=== PATIENT | female | born 1960 | race African-American/Black ===

== ENCOUNTER 2017-08-12 13:44 | Observation (INO) | payer OTHER ==
[2017-08-12 13:55] VITALS: BMI 31.3
--- NOTE | 2017-08-12 14:49 | PDOC ---
History of Present Illness - General History Source: Patient Exam Limitations: No Limitations - History of Present Illness Initial Comments: 08/12/17 15:22 The patient is a 56 year old female, with a significant past medical history of lupus, invasive ductal carcinoma of right breast, who presents to the emergency department with multiple complaints. The patient reports left sided arm pain and muscle weakness beginning approx. 3 days ago. The patient reports her left arm has been feeling numb for approx. 2 years, however, the left arm pain and muscle weakness are new. The patient also reports left sided chest discomfort beginning approx. 3 days ago. The patient describes the left sided chest discomfort as a pressure feeling that is unaffected by movement or activity. The patient also reports left sided abdominal pain that began three days ago and is worse when using the restroom. The patient states that the symptoms have been intermittent for the past 3 days and that she visited the ED at [place] yesterday for evaluation, however, was discharged and instructed from the doctor that her blood work and EKG were normal. She denies recent fevers, chills, headache or dizziness. She denies recent nausea, vomit, diarrhea or constipation. She denies recent dysuria, frequency, urgency or hematuria. She denies shortness of breath. Primary Care Physician: Dr. Christensen <Bello Pang - Last Filed: 08/12/17 18:33> <Chema Hwang - Last Filed: 08/12/17 19:17> - General Chief Complaint: Chest Pain Stated Complaint: CHEST PAIN, LEFT ARM, LEFT LEG NUMBNESS Time Seen by Provider: 08/12/17 13:53 NIH Stroke Scale - Last Known Well Date/Time & Onset Date Last Known Well: 08/09/17 - Initial Evaluation Level of consciousness: Alert Ask patient the month and their age: Answers both correctly Ask patient to open & close eyes; make fist and let go: Obeys both correctly Best gaze (horizontal eye movement): Normal Visual field testing: No visual field loss Facial paresis (Show teeth/raise eyebrows/close eyes tight): Normal symmetrical movement Motor Function: Left Arm: Normal Motor Function: Right Arm: Normal (extends arm 90 (or 45) degrees for 10 seconds without drift Motor Function: Left Leg: Normal (extends leg 30 degrees for 5 seconds without drift) Motor Function: Right Leg: Normal (extends leg 30 degrees for 5 seconds without drift) Limb Ataxia: No ataxia Sensory(Use pinprick test arms,legs,trunk,face/side to side): Normal Best language (Describe picture, name items, read sentences): No Aphasia Dysarthria (read several words): Normal articulation Extinction and Inattention: No abnormality - Total Score NIH Stroke Scale Score: 0 <Chema Hwang - Last Filed: 08/12/17 19:17> Past History <Bello Pang - Last Filed: 08/12/17 18:33> - Past Medical History Anemia: Yes (MANY YEARS AGO) Asthma: Yes (SINCE CHILDHOOD,LAST HOSPITALIZED 12/20) Cancer: Yes (RIGHT BREAST 12/20) Cardiac Disorders: No CVA: Yes COPD: No CHF: No Dementia: No Diabetes: No GI Disorders: Yes (ULCERATIVE COLITIS MANY YEARS AGO) Disorders: No HTN: No Hypercholesterolemia: No Liver Disease: No Seizures: Yes (EPILEPSY SINCE 4 YRS OLD,VAGAL NERVE STIMULATOR 05/10,BATTERY REPLACED 07/18) Thyroid Disease: No - Surgical History Abdominal Surgery: No Appendectomy: No Cardiac Surgery: No Cholecystectomy: No Lung Surgery: No Neurologic Surgery: (VAGAL NERVE STIMULATOR 2004,VERY SUCCESSFUL) Orthopedic Surgery: Yes - Suicide/Smoking/Psychosocial Hx Smoking History: Never smoked Have you smoked in the past 12 months: No Hx Alcohol Use: No Drug/Substance Use Hx: No Substance Use Type: None Hx Substance Use Treatment: No <Chema Hwang - Last Filed: 08/12/17 19:17> - Past Medical History Allergies/Adverse Reactions: Allergies Allergy/AdvReac Type Severity Reaction Status Date / Time aspartame Allergy Severe FLANK PAIN Verified 07/07/17 14:16 hydroxychloroquine sulfate Allergy Severe SEIZURE Verified 07/07/17 14:16 [From Plaquenil] Iodinated Contrast- Oral and Allergy Severe CARDIAC Verified 07/07/17 14:16 IV Dye ARREST naproxen Allergy Severe MAKES PAIN Verified 07/07/17 14:16 MUCH WORSE sumatriptan [From Imitrex] Allergy Severe TIA Verified 07/07/17 14:16 sumatriptan succinate Allergy Severe TIA Verified 07/07/17 14:16 [From Imitrex] zolmitriptan [From Zomig] Allergy Severe TIA Verified 07/07/17 14:16 "ALL TRIPTANS" Allergy Uncoded 08/12/17 13:46 Home Medications: Ambulatory Orders Acetaminophen/Caffeine/Butalb [Fioricet -] 1 tab PO Q6H PRN 07/07/17 Albuterol 0.083% Nebulizer Samantha [Ventolin 0.083% Nebulizer Soln -] 1 amp NEB ASDIR PRN 07/07/17 Beclomethasone Dipropionate [Qvar] 8.7 gm IH BID 07/07/17 Fluoxetine HCl [Prozac] 20 mg PO DAILY 07/07/17 Gabapentin 100 mg PO TID 07/07/17 Ibuprofen 600 mg PO Q6H PRN 07/07/17 Ipratropium/Albuterol Sulfate [Combivent Respimat Inhal [place]] 4 gm IH QID 07/07 Lorazepam 2 mg PO TID 07/07/17 Oxycodone HCl/Acetaminophen [Percocet 5-325 mg Tablet] 1 tab PO Q6H PRN Trazodone HCl 100 mg PO HS 07/07/17 Ondansetron [Zofran Odt -] 4 mg SL Q4H 08/12/17 Review of Systems - Review of Systems Comments:: 08/12/17 15:34 ROS: A complete review of 10 out of 10 review of systems is taken and is negative apart from what is previously mentioned below and in the HPI. <Bello Pang - Last Filed: 08/12/17 18:33> *Physical Exam - Vital Signs Last Vital Signs Temp Pulse Resp BP Pulse Ox 98.5 F 76 18 123/67 100 08/12/17 13:45 08/12/17 13:45 08/12/17 13:45 08/12/17 13:45 08/12/17 13:45 - Physical Exam Comments: 08/12/17 15:34 Vitals: Triage vital signs reviewed General Appearance: No acute distress, well nourished, well developed Neck: Supple; No nuchal rigidity Chest Wall: Nontender Cardiac: Regular rate and rhythm, no murmurs, no rubs, no gallops Lungs: Clear to auscultation bilateral, good air movement bilaterally Abdomen: Soft, nondistended, normal bowel sounds, nontender to palpation Extremities: Full range of motion to all extremities, no cyanosis, clubbing, or edema Skin: Warm and dry, no rashes or lesions, no rash, no petechiae Neuro: AOX3; Cranial Nerves 2-12 grossly intact, Strength intact to all extremities, Sensation intact to all extremities, Psych: Normal mood, normal affect <Bello Pang - Last Filed: 08/12/17 18:33> - Vital Signs Last Vital Signs Temp Pulse Resp BP Pulse Ox 98.5 F 76 18 123/67 100 08/12/17 13:45 08/12/17 13:45 08/12/17 13:45 08/12/17 13:45 08/12/17 13:45 <Chema Hwang - Last Filed: 08/12/17 19:17> Heart Score/ECG Review #1 08/12/17 16:44 EKG performed at 14:05:15 demonstrates rate of 71 bpm, sinus rhythm, axis equal to normal. No T wave inversions, no ST elevations. <Bello Pang - Last Filed: 08/12/17 18:33> ED Treatment Course - LABORATORY CBC & Chemistry Diagram: 08/12/17 16:00 08/12/17 16:00 - RADIOLOGY Radiograph Interpretation: 08/12/17 18:22 EXAM#: TYPE/EXAM: RESULT: [id number] CT/HEAD CT WITHOUT CONTRAST EXAM: CT head without contrast. INDICATION: Left-sided weakness. TECHNIQUE: Axial noncontrast head CT. COMPARISON: None. FINDINGS: There is no evidence of acute intracranial hemorrhage or acute, territorial transcortical infarct at this time. MRI is much more sensitive in detecting acute infarction. There is no mass effect, midline shift or hydrocephalus. The calvarium is intact. There is hyperostosis frontalis interna. The visualized paranasal sinuses and mastoid air cells are clear. IMPRESSION: No evidence of acute intracranial hemorrhage or acute transcortical infarction. No mass effect, midline shift or hydrocephalus. MRI is much more sensitive in detecting acute infarction. Please correlate clinically. Reported By: Brianna Mack DO 08/12/17 18:23 EXAM#: TYPE/EXAM: RESULT: [id number] RAD/CHEST X-RAY PORTABLE* EXAM: Chest x-ray - single AP portable view. INDICATION: Chest pain. COMPARISON: None. FINDINGS: No evidence of airspace consolidation, pulmonary vascular congestion or pleural effusion. There is no definable pneumothorax. Normal size of the cardiomediastinal silhouette. There are right axillary surgical clips. There is a generator overlying the upper left chest with electrodes coursing superiorly into the left neck. There is no abnormal deviation of the trachea. There is acromioclavicular arthropathy. IMPRESSION: No focal opacity to suggest pneumonia. No evidence of pulmonary vascular congestion or pleural effusion. Reported By: Brianna Mack DO <Bello Pang - Last Filed: 08/12/17 18:33> - LABORATORY CBC & Chemistry Diagram: 08/12/17 16:00 08/12/17 16:00 - RADIOLOGY Radiology Studies Ordered: Category Date Time Status HEAD CT WITHOUT CONTRAST [CT] Stat CT Scan 08/12/17 14:33 Ordered CXRPORT [CHEST X-RAY PORTABLE*] [RAD] Stat Radiology 08/12/17 13:54 Completed <Chema Hwang - Last Filed: 08/12/17 19:17> Medical Decision Making - Medical Decision Making 08/12/17 18:[address] Talavera at 6:10 pm. Page answered immediately. 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 Given multiple risk factors including cancer and lupus Will observe for serial troponins neurology consultation to rule out metastases MRI ordered per neurology recommendations. to consult <Chema Hwang - Last Filed: 08/12/17 19:17> *DC/Admit/Observation/Transfer - Attestations Scribe Attestion: 08/12/17 15:35 Documentation prepared by Bello Pang, acting as medical or surgical instrument maker for Chema Hwang MD. <Bello Pang - Last Filed: 08/12/17 18:33> - Discharge Dispostion Admit: Yes <Chema Hwang - Last Filed: 08/12/17 19:17> Diagnosis at time of Disposition: Left arm weakness Chest pain Qualifiers: Chest pain type: unspecified Qualified Code(s): R07.9 - Chest pain, unspecified - Discharge Dispostion Condition at time of disposition: Stable - Referrals Referrals: Jose Christensen MD [Primary Care Provider] - - Patient Instructions - Post Discharge Activity
[2017-08-12 16:30] LABS: BASOPHIL 0.4 % (0-2.0); EOSINOPHIL 5.6 % (0-4.5); MCH 27.8 pg (25.7-33.7); MCHC 32.6 g/dl (32.0-36.0); MEAN CELL VOLUME 85.3 fl (80-96); MEAN PLT VOLUME 8.4 fl (7.5-11.1); NEUTROPHILS 43.6 % (42.8-82.8); PLATELET COUNT 332 K/MM3 (134-434); RDW 13.7 % (11.6-15.6); WHITE BLOOD COUNT 4.6 K/mm3 (4.0-10.8)
[2017-08-12 16:44] LABS: ANION GAP 4 (8-16); CALCIUM 9.2 mg/dl (8.4-10.2); CO2 27 mmol/L (22-28); CREATININE 0.9 mg/dl (0.6-1.3); GLUCOSE,RANDOM 85 mg/dl (74-106)
[2017-08-12] MEDS ORDERED: ACETAMINOPHEN/CAFFEINE/BUTALBITAL 1 TAB PO ONE (20:02)
[2017-08-12] MEDS ORDERED: ACETAMINOPHEN/CAFFEINE/BUTALBITAL 1 TAB ONE (20:03)
--- NOTE | 2017-08-12 20:10 | HP ---
CHIEF COMPLAINT: L- Arm Weakness, Chest Pressure PCP: Dr. Christensen HISTORY OF PRESENT ILLNESS: This is a 56 y/o with a PMHx of R- Breast Ca (Lumpectomy x2), Lupus, Epilepsy. Who presents to the ED with L- arm weakness, L- sided chest pressure, L- sided abdominal pain x 3 days. Patient reports being seen and evaluated at [facility] for CP and d/cd to home. Patient reports the CP is intermittent non radiating sharp in quality. Patient reports having increased abdominal pain after eating. Patient denies fever, chills, cough, dizziness, RUIZ, V/D, constipation, dysuria. ER course was notable for: (1) Head CT- No evidence of acute intracranial hemorrhage or acute transcortical infarction. No mass effect, midline shift or hydrocephalus (2) Chest Xray- No focal opacity to suggest Pneumonia. No evidence pulmonary vascular congestion or pleural effusion (3) Troponin- neg x1 Recent Travel: None PAST MEDICAL HISTORY: R- Breast Ca (December,) Lupus Epilepsy PAST SURGICAL HISTORY: Lumpectomy x2 Vagus Nerve Stimulator Social History: Smoking: Never Alcohol: None Drugs: None Lives alone- not employed Family History: Mother: Breast Ca mets Brain/Bone, Aunt: Breast Ca, Father: Colon Ca, ESRD, HTN, Allergies aspartame Allergy (Severe, Verified 07/07/17 14:16) FLANK PAIN hydroxychloroquine sulfate [From Plaquenil] Allergy (Severe, Verified 07/07/17 14:16) SEIZURE Iodinated Contrast- Oral and IV Dye Allergy (Severe, Verified 07/07/17 14:16) CARDIAC ARREST naproxen Allergy (Severe, Verified 07/07/17 14:16) MAKES PAIN MUCH WORSE sumatriptan [From Imitrex] Allergy (Severe, Verified 07/07/17 14:16) TIA sumatriptan succinate [From Imitrex] Allergy (Severe, Verified 07/07/17 14:16) TIA zolmitriptan [From Zomig] Allergy (Severe, Verified 07/07/17 14:16) TIA "ALL TRIPTANS" Allergy (Uncoded 08/12/17 13:46) HOME MEDICATIONS: Home Medications Medication Instructions Recorded Acetaminophen/Caffeine/Butalb 1 tab PO Q6H PRN 07/07/17 [Fioricet -] Albuterol 0.083% Nebulizer Samantha 1 amp NEB ASDIR PRN 07/07/17 [Ventolin 0.083% Nebulizer Soln -] Beclomethasone Dipropionate [Qvar] 8.7 gm IH BID 07/07/17 Fluoxetine HCl [Prozac] 20 mg PO DAILY 07/07/17 Gabapentin 100 mg PO TID 07/07/17 Ibuprofen 600 mg PO Q6H PRN 07/07/17 Ipratropium/Albuterol Sulfate 4 gm IH QID 07/07/17 [Combivent Respimat Inhal [place]] Lorazepam 2 mg PO TID 07/07/17 Oxycodone HCl/Acetaminophen 1 tab PO Q6H PRN 07/07/17 [Percocet 5-325 mg Tablet] Trazodone HCl 100 mg PO HS 07/07/17 Ondansetron [Zofran Odt -] 4 mg SL Q4H 08/12/17 REVIEW OF SYSTEMS CONSTITUTIONAL: Absent: fever, chills, diaphoresis, generalized weakness, malaise, loss of appetite, weight change HEENT: Absent: rhinorrhea, nasal congestion, throat pain, throat swelling, difficulty swallowing, mouth swelling, ear pain, eye pain, visual changes CARDIOVASCULAR: chest pain Absent: syncope, palpitations, irregular heart rate, lightheadedness, peripheral edema RESPIRATORY: Absent: cough, shortness of breath, dyspnea with exertion, orthopnea, wheezing, stridor, hemoptysis GASTROINTESTINAL: Absent: abdominal pain, abdominal distension, nausea, vomiting, diarrhea, constipation, melena, hematochezia GENITOURINARY: Absent: dysuria, frequency, urgency, hesitancy, hematuria, flank pain, genital pain MUSCULOSKELETAL: Absent: myalgia, arthralgia, joint swelling, back pain, neck pain SKIN: Absent: rash, itching, pallor HEMATOLOGIC/IMMUNOLOGIC: Absent: easy bleeding, easy bruising, lymphadenopathy, frequent infections ENDOCRINE: Absent: unexplained weight gain, unexplained weight loss, heat intolerance, cold intolerance NEUROLOGIC: focal weakness Absent: headache, or paresthesias, dizziness, unsteady gait, seizure, mental status changes, bladder or bowel incontinence PSYCHIATRIC: Absent: anxiety, depression, suicidal or homicidal ideation, hallucinations. PHYSICAL EXAMINATION Vital Signs - 24 hr 08/12/17 13:45 Temperature 98.5 F Pulse Rate 76 Respiratory 18 Rate Blood Pressure 123/67 O2 Sat by Pulse 100 Oximetry (%) GENERAL: Awake, alert, and fully oriented, in no acute distress. HEAD: Normal with no signs of trauma. EYES: Pupils equal, round and reactive to light, extraocular movements intact, sclera anicteric, conjunctiva clear. No lid lag. EARS, NOSE, THROAT: Ears normal, nares patent, oropharynx clear without exudates. Dry mucous membranes. NECK: Normal range of motion, supple without lymphadenopathy, JVD, or masses. LUNGS: Breath sounds equal, clear to auscultation bilaterally. No wheezes, and no crackles. No accessory muscle use. HEART: Regular rate and rhythm, normal S1 and S2 without murmur, rub or gallop. CP reproducible upon palpation LCW ABDOMEN: Soft, nontender, not distended, normoactive bowel sounds, no guarding, no rebound, no masses. No hepatomegaly or splenomegaly. MUSCULOSKELETAL: Normal range of motion at all joints. No bony deformities or tenderness. No CVA tenderness. UPPER EXTREMITIES: 2+ pulses, warm, well-perfused. No cyanosis. No clubbing. No peripheral edema. LOWER EXTREMITIES: 2+ pulses, warm, well-perfused. No calf tenderness. No peripheral edema. NEUROLOGICAL: Cranial nerves II-XII intact. Normal speech. Heel-[place] test- wnl no ataxia. Gait not observed. PSYCHIATRIC: Cooperative. Good eye contact. Appropriate mood and affect. SKIN: Warm, dry, normal turgor, no rashes or lesions noted, normal capillary refill. Laboratory Results - last 24 hr 08/12/17 08/12/17 16:00 16:00 WBC 4.6 RBC 4.08 Hgb 11.3 Hct 34.8 MCV 85.3 MCH 27.8 MCHC 32.6 RDW 13.7 Plt Count 332 MPV 8.4 D Neutrophils % 43.6 D Lymphocytes % 41.9 H D Monocytes % 8.5 Eosinophils % 5.6 H Basophils % 0.4 Sodium 138 Potassium 3.9 Chloride 107 Carbon Dioxide 27 Anion Gap 4 L BUN 16 Creatinine 0.9 Random Glucose 85 Calcium 9.2 Troponin I 0.00 ASSESSMENT/PLAN: This is a 56 y/o woman with a PMHx of: Epilepsy (Vagus Nerve Stimulator), R- Breast Ca, Lupus. Placed in Tele Observation. Plan: 1. Left Arm Weakness - NIHSS 0 - CT Head- neg ICH, mass or lesion - Neuro checks - Fall Precautions - MRI pending- will need to verify with [facility] [employer] if VNS is MRI compatible 2. Chest Pain - HEART Score 3 - Continue Cardiac monitoring - Serial Enzymes neg x1 3. R- Breast Ca - s/p Lumpectomy x2 - no RT, no chemo 4. Epilepsy - s/p vagus nerve stimulator [employer] # [phone], ([phone]) - no current meds 5. Lupus - no current meds 6. FEN - Replete lytes prn - Low Na Diet 7. DVT Prophylaxis - SCDs - Consider ACs if LOS > 48 hrs Code Status: Full Code Dispo: Tele Obs Problem List - Problem (1) Left arm weakness Code(s): R29.898 - OTH SYMPTOMS AND SIGNS INVOLVING THE MUSCULOSKELETAL SYSTEM (2) Chest pain Code(s): R07.9 - CHEST PAIN, UNSPECIFIED Qualifiers: Chest pain type: unspecified Qualified Code(s): R07.9 - Chest pain, unspecified (3) Ductal carcinoma in situ (DCIS) of right breast Code(s): D05.11 - INTRADUCTAL CARCINOMA IN SITU OF RIGHT BREAST (4) Invasive ductal carcinoma of right breast Code(s): C50.911 - MALIGNANT NEOPLASM OF UNSP SITE OF RIGHT FEMALE BREAST (5) Epilepsy Code(s): G40.909 - EPILEPSY, UNSP, NOT INTRACTABLE, WITHOUT STATUS EPILEPTICUS (6) Lupus Code(s): L93.0 - DISCOID LUPUS ERYTHEMATOSUS Visit type - Emergency Visit Emergency Visit: Yes ED Registration Date: 08/12/17 Care time: The patient presented to the Emergency Department on the above date and was hospitalized for further evaluation of their emergent condition. - New Patient This patient is new to me today: Yes Date on this admission: 08/12/17 - Critical Care Critical Care patient: No
[2017-08-12] MEDS ORDERED: IBUPROFEN 600 MG TABLET (FP) PO PRN (23:02)
[2017-08-12] MEDS ORDERED: ALBUTEROL SO4 0.083% IH SOL 2.5 MG/3 ML VIAL.NEB. NEB PRN (23:02)
[2017-08-12] MEDS ORDERED: PATIENT'S OWN MEDICATION (NON-FORMULARY) (Beclomethasone Dipropionate [Qvar] 8.7 GM) IH SCH (23:15)
[2017-08-12] MEDS: GABAPENTIN 100 MG CAPSULE (FP) PO SCH (23:24)
[2017-08-12] MEDS: traZODone HCL 50 MG TABLET (FP) PO SCH (23:24)
[2017-08-13] MEDS ORDERED: LORazepam 0.5 MG TABLET PO ONE ×2 (00:57→21:30)
[2017-08-13] MEDS: GABAPENTIN 100 MG CAPSULE (FP) PO SCH ×3 (05:27→21:28)
[2017-08-13 07:48] LABS: BASOPHIL 0.4 % (0-2.0); EOSINOPHIL 6.7 % (0-4.5); MCHC 32.7 g/dl (32.0-36.0); MEAN CELL VOLUME 85.5 fl (80-96); MEAN PLT VOLUME 8.7 fl (7.5-11.1); NEUTROPHILS 32.4 % (42.8-82.8); PLATELET COUNT 285 K/MM3 (134-434); RDW 13.8 % (11.6-15.6); WHITE BLOOD COUNT 4.2 K/mm3 (4.0-10.8)
[2017-08-13 08:37] LABS: ANION GAP 6 (8-16); CALCIUM 8.9 mg/dl (8.4-10.2); CO2 25 mmol/L (22-28); CREATININE 0.8 mg/dl (0.6-1.3); GLUCOSE,RANDOM 91 mg/dl (74-106); MAGNESIUM 1.9 mg/dL (1.8-2.4); PHOSPHOROUS 4.5 mg/dl (2.5-4.6)
--- NOTE | 2017-08-13 09:20 | PN ---
Physical Exam: SUBJECTIVE: Patient seen and examined. Complains of "shooting pains all over my head." No left arm numbness, still has subjective left arm weakness. OBJECTIVE: Trop neg x 3. No events on telemetry. CTH: No acute intracranial process. Vital Signs Period Temp Pulse Resp BP Sys/Ruff Pulse Ox Last 24 Hr 97.6 F-98.5 F 60-81 18-19 102-130/61-75 98-100 GENERAL: The patient is awake, alert, and fully oriented, in no acute distress. HEAD: Normal with no signs of trauma. EYES: PERRL, extraocular movements intact, sclera anicteric, conjunctiva clear. No ptosis. ENT: Ears normal, nares patent, oropharynx clear without exudates, moist mucous membranes. NECK: Trachea midline, full range of motion, supple. LUNGS: Breath sounds equal, clear to auscultation bilaterally, no wheezes, no crackles, no accessory muscle use. HEART: Regular rate and rhythm, S1, S2 without murmur, rub or gallop. ABDOMEN: Soft, nontender, nondistended, normoactive bowel sounds, no guarding, no rebound, no hepatosplenomegaly, no masses. EXTREMITIES: 2+ pulses, warm, well-perfused, no edema. NEUROLOGICAL: Cranial nerves II through XII grossly intact. Normal speech, normal gait. 5/5 upper and lower extremity strength bilaterally. PSYCH: Depressed affect. Defiant and confrontational. SKIN: Warm, dry, normal turgor, no rashes or lesions noted Laboratory Results - last 24 hr 08/12/17 08/12/17 08/12/17 16:00 16:00 23:20 WBC 4.6 RBC 4.08 Hgb 11.3 Hct 34.8 MCV 85.3 MCH 27.8 MCHC 32.6 RDW 13.7 Plt Count 332 MPV 8.4 D Neutrophils % 43.6 D Lymphocytes % 41.9 H D Monocytes % 8.5 Eosinophils % 5.6 H Basophils % 0.4 Sodium 138 Potassium 3.9 Chloride 107 Carbon Dioxide 27 Anion Gap 4 L BUN 16 Creatinine 0.9 Random Glucose 85 Calcium 9.2 Phosphorus Magnesium Creatine Kinase 88 Troponin I 0.00 0.00 08/13/17 08/13/17 07:25 07:25 WBC 4.2 RBC 3.77 Hgb 10.5 L Hct 32.2 L MCV 85.5 MCH 28.0 MCHC 32.7 RDW 13.8 Plt Count 285 MPV 8.7 Neutrophils % 32.4 L D Lymphocytes % 52.2 H D Monocytes % 8.3 Eosinophils % 6.7 H Basophils % 0.4 Sodium 138 Potassium 3.9 Chloride 107 Carbon Dioxide 25 Anion Gap 6 L BUN 17 Creatinine 0.8 Random Glucose 91 Calcium 8.9 Phosphorus 4.5 Magnesium 1.9 Creatine Kinase Troponin I 0.00 Active Medications Generic Name Dose Route Start Last Admin Trade Name Freq PRN Reason Stop Dose Admin Acetaminophen/Butalbital/Caffeine 1 tablet 08/12/17 23:02 Fioricet - PO Q6H PRN HEADACHE Albuterol Sulfate 1 amp 08/12/17 23:02 Ventolin 0.083% Nebulizer Soln - NEB Q6H PRN SHORT OF BREATH/WHEEZING Fluoxetine HCl 20 mg 08/13/17 10:00 Prozac - PO DAILY RUKHSANA Gabapentin 100 mg 08/12/17 23:15 08/13/17 05:27 Neurontin - PO 100 mg TID RUKHSANA Administration Ibuprofen 600 mg 08/12/17 23:02 08/12/17 23:26 Motrin - PO 600 mg Q6H PRN Administration PAIN Non-Formulary Medication 8.7 gm 08/12/17 23:15 Beclomethasone Dipropionate [Qvar] IH BID RUKHSANA Non-Formulary Medication 4 gm 08/13/17 10:00 Ipratropium/Albuterol Sulfate [Combivent Respimat Inhal [place]] IH QID RUKHSANA Trazodone HCl 100 mg 08/12/17 22:00 08/12/17 23:24 Desyrel - PO 100 mg HS RUKHSANA Administration ASSESSMENT/PLAN: 56 year old female with epilepsy s/p Vagus Nerve Stimulator, R - Breast ca, and lupus placed in observation with left arm weakness and numbness. Plan: 1. Left Arm Weakness - NIHSS repeated and remains 0 - CT Head- neg ICH, mass or lesion - MRI brain is pending; called [employer] # [id number], ([phone]) and they do not keep any weekend hours. Patient states she has had MRI brain before. Contacted her neurologist's office in [place] (Dr. Remy - ) and she can have MRI only if VNS is turned off. This can be done by a neurologist who has the correct apparatus or by contacting the company on Tuesday - Continue neuro checks, fall precautions - Neuro consult pending 2. Chest Pain - Ruled out for [place] - Pain under left breast, tender to palpation/reproducible 3. R- Breast Ca - s/p Lumpectomy x2 - no RT, no chemo 4. Epilepsy - S/p vagus nerve stimulator - no current meds 5. Lupus - No current meds 6. FEN - Replete lytes prn - Low Na Diet 7. DVT Prophylaxis - Active malignancy - Lovenox Code Status: Full Code Dispo: Tele Obs Visit type - Emergency Visit Emergency Visit: Yes ED Registration Date: 08/12/17 Care time: The patient presented to the Emergency Department on the above date and was hospitalized for further evaluation of their emergent condition. - New Patient This patient is new to me today: Yes Date on this admission: 08/14/17 - Critical Care Critical Care patient: No - Discharge Referral Referred to [facility] No
[2017-08-13] MEDS ORDERED: PATIENT'S OWN MEDICATION (NON-FORMULARY) (Ipratropium/Albuterol Sulfate [Combivent Respima IH SCH (10:00)
[2017-08-13] MEDS: FLUoxetine HCL 20 MG CAPSULE (FP) PO SCH (10:09)
--- NOTE | 2017-08-13 16:56 | CON.NEURO ---
Consult - History of Present Illness History of Present Illness: 56 Year old female history of breast cancer ( lumbpectomy done in january 2017), no radiation or chemo planned. breast reconstruction planned. Patient has history of epilepsy since childhood, epilepsy, depression and vagus nerve stimulator. She never had stroke . No significant risk factor for stroke ( dm, htn , hyperlipidemia) Patient cant have mri done as her vagus nerve stimulator need to be turned off and it need computer with software and it cant be done over the weekend. Aga feels her pain and numbness, and weakness is better but pain and numbness is still persists. As per patient she do have mild numbness on left side. 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: Yes: Migraine, Seizure (vagal nerve stimulator 2004 can not have MRI) Gastrointestinal: Yes: Ulcerative Colitis ...LMP Comment: 56 YEAR OLD Rheumatology: Yes: Lupus - Alcohol/Substance Use Hx Alcohol Use: No - Smoking History Smoking history: Never smoked Have you smoked in the past 12 months: No Home Medications - Allergies Allergies/Adverse Reactions: Allergies Allergy/AdvReac Type Severity Reaction Status Date / Time aspartame Allergy Severe FLANK PAIN Verified 07/07/17 14:16 hydroxychloroquine sulfate Allergy Severe SEIZURE Verified 07/07/17 14:16 [From Plaquenil] Iodinated Contrast- Oral and Allergy Severe CARDIAC Verified 07/07/17 14:16 IV Dye ARREST naproxen Allergy Severe MAKES PAIN Verified 07/07/17 14:16 MUCH WORSE sumatriptan [From Imitrex] Allergy Severe TIA Verified 07/07/17 14:16 sumatriptan succinate Allergy Severe TIA Verified 07/07/17 14:16 [From Imitrex] zolmitriptan [From Zomig] Allergy Severe TIA Verified 07/07/17 14:16 "ALL TRIPTANS" Allergy Uncoded 08/12/17 13:46 - Home Medications Home Medications: Ambulatory Orders Acetaminophen/Caffeine/Butalb [Fioricet -] 1 tab PO Q6H PRN 07/07/17 Albuterol 0.083% Nebulizer Samanhta [Ventolin 0.083% Nebulizer Soln -] 1 amp NEB ASDIR PRN 07/07/17 Beclomethasone Dipropionate [Qvar] 8.7 gm IH BID 07/07/17 Fluoxetine HCl [Prozac] 20 mg PO DAILY 07/07/17 Gabapentin 100 mg PO TID 07/07/17 Ibuprofen 600 mg PO Q6H PRN 07/07/17 Ipratropium/Albuterol Sulfate [Combivent Respimat Inhal [place]] 4 gm IH QID 07/07 Lorazepam 2 mg PO TID 07/07/17 Oxycodone HCl/Acetaminophen [Percocet 5-325 mg Tablet] 1 tab PO Q6H PRN Trazodone HCl 100 mg PO HS 07/07/17 Ondansetron [Zofran Odt -] 4 mg SL Q4H 08/12/17 Family Disease History - Family Disease History Family Disease History: CA: Father (CRC 50's ), Mother (breast ca 48 62) Physical Exam-Neuro Vital Signs: Vital Signs Temperature 97.9 F 08/13/17 13:50 Pulse Rate 59 L 08/13/17 13:50 Respiratory Rate 18 08/13/17 15:00 Blood Pressure 115/64 08/13/17 13:50 O2 Sat by Pulse Oximetry (%) 100 08/13/17 15:00 Labs: CBC, BMP 08/13/17 07:25 08/13/17 07:25 Assessment/Plan cc left sided arm ,leg pain and numbness HPI 56 Year old female history of breast cancer ( lumbpectomy done in january 2017) , no radiation or chemo planned. breast reconstruction planned. Patient has history of epilepsy since childhood, epilepsy, depression and vagus nerve stimulator. She never had stroke . No significant risk factor for stroke ( dm, htn ,hyperlipidemia) Patient cant have mri done as her vagus nerve stimulator need to be turned off and it need computer with software and it cant be done over the weekend. Aga feels her pain and numbness, and weakness is better but pain and numbness is still persists. As per patient she do have mild numbness on left side. PMH as above SH,FH, ROS reviewed in chart Allergies aspartame Allergy (Severe, Verified 07/07/17 14:16) FLANK PAIN hydroxychloroquine sulfate [From Plaquenil] Allergy (Severe, Verified 07/07/17 14:16) SEIZURE Iodinated Contrast- Oral and IV Dye Allergy (Severe, Verified 07/07/17 14:16) CARDIAC ARREST naproxen Allergy (Severe, Verified 11/02/17 14:16) MAKES PAIN MUCH WORSE sumatriptan [From Imitrex] Allergy (Severe, Verified 07/07/17 14:16) TIA sumatriptan succinate [From Imitrex] Allergy (Severe, Verified 07/07/17 14:16) TIA zolmitriptan [From Zomig] Allergy (Severe, Verified 07/07/17 14:16) TIA "ALL TRIPTANS" Allergy (Uncoded 08/12/17 13:46) HOME MEDICATIONS: Home Medications Medication Instructions Recorded Acetaminophen/Caffeine/Butalb 1 tab PO Q6H PRN 07/07/17 [Fioricet -] Albuterol 0.083% Nebulizer Samantha 1 amp NEB ASDIR PRN 07/07/17 [Ventolin 0.083% Nebulizer Soln -] Beclomethasone Dipropionate [Qvar] 8.7 gm IH BID 07/07/17 Fluoxetine HCl [Prozac] 20 mg PO DAILY 07/07/17 Gabapentin 100 mg PO TID 07/07/17 Ibuprofen 600 mg PO Q6H PRN 07/07/17 Ipratropium/Albuterol Sulfate 4 gm IH QID 07/07/17 [Combivent Respimat Inhal [place]] Lorazepam 2 mg PO TID 07/07/17 Oxycodone HCl/Acetaminophen 1 tab PO Q6H PRN 07/07/17 [Percocet 5-325 mg Tablet] Trazodone HCl 100 mg PO HS 07/07/17 Ondansetron [Zofran Odt -] 4 mg SL Q4H 08/12/17 Neurological Examination Alert oriented x 3 , follow simple command EOMI, no facial asymmetry, pupils is reactive Moving both upper extremity and lowe rextremity strenght is normal on maximal effort sensation is diminisehd on face arm and leg( partly it is old partly it is new as per patient) reflex are symmetrical Ct head is unremarkable Assessment-- Left sided arm and leg pain and numbness and subjective weakness ( now improved) , Patient cannot have mri as VNS need to be turned off. We do not have software and machine to operate over the weekend and cant be done over the weekend. Patient is refusing to repeat ct and cant be given iodine dye as she is allergic. She do also complain of heahdace and neck pain and history of migriane in past and she is on fioricet for migraine . These symptoms could be due to migraine Plan-- Patient refusing to get repeat ct head and ct with contrast cant be done - mri cant be done before turning VNS off advise patient can be discharged and follow up with her doctor clinically less suspician for stroke, and given her symptoms of left pain ,less likely to be mets of brain but suggest to get mri of brain and c spine . Thank you so much Ralph Talavera MD
[2017-08-13] MEDS: traZODone HCL 50 MG TABLET (FP) PO SCH (21:27)
--- NOTE | 2017-08-13 22:26 | EKG ---
Test Reason : Blood Pressure : / mmHG Vent. Rate : 071 BPM Atrial Rate : 071 BPM P-R Int : 164 ms QRS Dur : 084 ms QT Int : 428 ms P-R-T Axes : 064 046 030 degrees QTc Int : 465 ms SINUS RHYTHM WITH PREMATURE ATRIAL COMPLEXES OTHERWISE NORMAL ECG NO PREVIOUS ECGS AVAILABLE Confirmed by OLGA ALCOCER, JOSAFAT ([id number]) on 08/13/2017 10:26:02 PM Referred By: ROCIO OLVERA Confirmed By:JOSAFAT ESPINOZA MD
[2017-08-14] MEDS: GABAPENTIN 100 MG CAPSULE (FP) PO SCH ×3 (06:39→21:18)
[2017-08-14 09:02] LABS: BASOPHIL 0.4 % (0-2.0); EOSINOPHIL 6.3 % (0-4.5); MCHC 32.7 g/dl (32.0-36.0); MEAN CELL VOLUME 85.7 fl (80-96); MEAN PLT VOLUME 8.9 fl (7.5-11.1); NEUTROPHILS 36.9 % (42.8-82.8); PLATELET COUNT 281 K/MM3 (134-434); RDW 13.3 % (11.6-15.6); WHITE BLOOD COUNT 4.6 K/mm3 (4.0-10.8)
[2017-08-14 09:59] LABS: ANION GAP 6 (8-16); CO2 25 mmol/L (22-28); CREATININE 0.8 mg/dl (0.6-1.3); GLUCOSE,RANDOM 89 mg/dl (74-106)
--- NOTE | 2017-08-14 09:59 | PN ---
Physical Exam: SUBJECTIVE: Patient seen and examined. Is upset because no one understands how she feels and because "the plan keeps changing." Still with subjective left arm numbness. OBJECTIVE: Vital Signs Period Temp Pulse Resp BP Sys/Ruff Pulse Ox Last 24 Hr 97.4 F-97.9 F 59-80 18-18 99-115/60-67 98-100 GENERAL: The patient is awake, alert, and fully oriented, in no acute distress. HEAD: Normal with no signs of trauma. EYES: PERRL, extraocular movements intact, sclera anicteric, conjunctiva clear. No ptosis. ENT: Ears normal, nares patent, oropharynx clear without exudates, moist mucous membranes. NECK: Trachea midline, full range of motion, supple. LUNGS: Breath sounds equal, clear to auscultation bilaterally, no wheezes, no crackles, no accessory muscle use. HEART: Regular rate and rhythm, S1, S2 without murmur, rub or gallop. ABDOMEN: Soft, nontender, nondistended, normoactive bowel sounds, no guarding, no rebound, no hepatosplenomegaly, no masses. EXTREMITIES: 2+ pulses, warm, well-perfused, no edema. NEUROLOGICAL: Cranial nerves II through XII grossly intact. 5/5 upper and lower extremity strength bilaterally. Toes downgoing. Reflexes intact. Normal speech, gait not observed. PSYCH: Flat affect. Confrontational and defiant. SKIN: Warm, dry, normal turgor, no rashes or lesions noted. Laboratory Results - last 24 hr 08/14/17 06:30 WBC 4.6 RBC 3.78 Hgb 10.6 L Hct 32.4 MCV 85.7 MCH 28.0 MCHC 32.7 RDW 13.3 Plt Count 281 MPV 8.9 Neutrophils % 36.9 L Lymphocytes % 49.2 H Monocytes % 7.2 Eosinophils % 6.3 H Basophils % 0.4 Active Medications Generic Name Dose Route Start Last Admin Trade Name Freq PRN Reason Stop Dose Admin Acetaminophen/Butalbital/Caffeine 1 tablet 08/12/17 23:02 Fioricet - PO Q6H PRN HEADACHE Albuterol Sulfate 1 amp 08/12/17 23:02 Ventolin 0.083% Nebulizer Soln - NEB Q6H PRN SHORT OF BREATH/WHEEZING Enoxaparin Sodium 40 mg 08/14/17 10:00 Lovenox - SQ DAILY RUKHSANA Fluoxetine HCl 20 mg 08/13/17 10:00 08/13/17 10:09 Prozac - PO 20 mg DAILY RUKHSANA Administration Gabapentin 100 mg 08/12/17 23:15 08/14/17 06:39 Neurontin - PO 100 mg TID RUKHSANA Administration Ibuprofen 600 mg 08/12/17 23:02 08/12/17 23:26 Motrin - PO 600 mg Q6H PRN Administration PAIN Non-Formulary Medication 8.7 gm 08/12/17 23:15 Beclomethasone Dipropionate [Qvar] IH BID RUKHSANA Non-Formulary Medication 4 gm 08/13/17 10:00 Ipratropium/Albuterol Sulfate [Combivent Respimat Inhal [place]] IH QID RUKHSANA Trazodone HCl 100 mg 08/12/17 22:00 08/13/17 21:27 Desyrel - PO 100 mg HS RUKHSANA Administration Imaging CTH 08/12: No acute intracranial process CXR 08/12: Clear lungs ASSESSMENT/PLAN: 56 year old female with epilepsy s/p vagus nerve stimulator, right breast ca s/p lumpectomies, and lupus placed in observation with left arm weakness and numbness. Plan: 1. Left Arm Weakness - NIHSS repeated and remains 0 - CT Head- neg ICH, mass or lesion - Discussed with patient's neurology office in [place] (Dr. Remy - ) and must turn off VNS to safely have MRI. Contacted - MRI brain is [facility] # [phone], ([phone]) and they do not keep any weekend hours. Left message requesting assistance with turning off the device on Tuesday and did receive a callback - spoke with accounts payable representative Javier Virk ([phone]) and he will send someone to de-activate the device this evening or tomorrow morning. - Offered patient second CTH as an alternative and she refuses. She refused when offered this plan by neurology as well. - Neurology evaluated patient and report low suspicion for stroke. Neurology recommended discharge with outpatient followup, however patient feels unsafe leaving without having her MRI. Will attempt to do this on Tuesday, although explained to patient it still may not be possible if [facility]. - Continue neuro checks, fall precautions 2. Chest Pain - Ruled out for PA - Pain under left breast, tender to palpation/reproducible 3. R- Breast Ca - s/p Lumpectomy x2 - no RT, no chemo 4. Epilepsy - S/p vagus nerve stimulator - no current meds 5. Lupus - No current meds 6. FEN - Replete lytes prn - Low Na Diet 7. DVT Prophylaxis - Active malignancy - Lovenox Code Status: Full Code Dispo: Tele Obs Visit type - Emergency Visit Emergency Visit: Yes ED Registration Date: 08/12/17 Care time: The patient presented to the Emergency Department on the above date and was hospitalized for further evaluation of their emergent condition. - New Patient This patient is new to me today: No - Critical Care Critical Care patient: No
[2017-08-14] MEDS: ENOXAPARIN NA (PORCINE) 40 MG/0.4 ML DISP.SYRIN SQ SCH (10:02)
[2017-08-14] MEDS: FLUoxetine HCL 20 MG CAPSULE (FP) PO SCH (10:02)
--- NOTE | 2017-08-14 13:32 | PN ---
Progress Note (short form) - Note Progress Note: HPI 56 Year old female history of breast cancer ( lumbpectomy done in january 2017) , no radiation or chemo planned. breast reconstruction planned. Patient has history of epilepsy since childhood, epilepsy, depression and vagus nerve stimulator. She never had stroke . No significant risk factor for stroke ( dm, htn ,hyperlipidemia) Patient cant have mri done as her vagus nerve stimulator need to be turned off and it need computer with software and it cant be done over the weekend. Patient feels her pain and numbness, and weakness is better but pain and numbness is still persists. As per patient she do have mild numbness on left side. [employer] were called and they will come to turn off the device for getting mri of brain done. Neurological Examination Alert oriented x 3 , follow simple command EOMI, no facial asymmetry, pupils is reactive Moving both upper extremity and lowe rextremity strenght is normal on maximal effort sensation is diminisehd on face arm and leg( partly it is old partly it is new as per patient) reflex are symmetrical ( Exam is unchanged ) Ct head is unremarkable Assessment-- Left sided arm and leg pain and numbness ( arm , face an dleg)and subjective weakness ( now improved) , She do also complain of headahce and neck pain and history of migriane in past and she is on fioricet for migraine . These symptoms could be due to migraine. Given that she has history of breast cancer, suggest to do mri of brain with contrast. Plan-- [employer] to come to turn off VNS and Patient to get mri of brain done , she is schedule for mri of brain with contrast. Thank you so much Ralph Talavera MD
[2017-08-14] MEDS ORDERED: PATIENT'S OWN MEDICATION (NON-FORMULARY) (Lorazepam [Lorazepam] 2 MG) PO SCH (14:15)
[2017-08-14] MEDS ORDERED: PATIENT'S OWN MEDICATION (NON-FORMULARY) (Lorazepam [Lorazepam] 2 MG) PO PRN (14:45)
[2017-08-14] MEDS ORDERED: LORazepam 1 MG TABLET PO PRN (15:15)
[2017-08-14] MEDS ORDERED: LORazepam 0.5 MG TABLET ONE ×2 (15:22→22:41)
[2017-08-14] MEDS: traZODone HCL 50 MG TABLET (FP) PO SCH (21:18)
[2017-08-14] MEDS: ACETAMINOPHEN/CAFFEINE/BUTALBITAL 1 TAB PO PRN (21:18)
[2017-08-15] MEDS: ACETAMINOPHEN/CAFFEINE/BUTALBITAL 1 TAB PO PRN (05:30)
[2017-08-15] MEDS: GABAPENTIN 100 MG CAPSULE (FP) PO SCH ×2 (06:10→13:52)
[2017-08-15] MEDS ORDERED: PT OWN MED DRAWER 7, Y5N ONE (06:24)
[2017-08-15 08:35] LABS: BASOPHIL 0.2 % (0-2.0); EOSINOPHIL 6.3 % (0-4.5); MCH 27.1 pg (25.7-33.7); MCHC 31.7 g/dl (32.0-36.0); MEAN CELL VOLUME 85.6 fl (80-96); MEAN PLT VOLUME 8.8 fl (7.5-11.1); NEUTROPHILS 55.9 % (42.8-82.8); PLATELET COUNT 261 K/MM3 (134-434); RDW 13.3 % (11.6-15.6); WHITE BLOOD COUNT 4.9 K/mm3 (4.0-10.8)
[2017-08-15 08:50] LABS: ANION GAP 4 (8-16); CO2 26 mmol/L (22-28); CREATININE 0.8 mg/dl (0.6-1.3); GLUCOSE,RANDOM 97 mg/dl (74-106)
--- NOTE | 2017-08-15 10:02 | DS ---
Physical Exam: SUBJECTIVE: Patient seen and examined, patient is texting on cell phone, reports right sided headed headached OBJECTIVE:This is a 56 y/o with a PMHx of R- Breast Ca (Lumpectomy x2), Lupus, Epilepsy. Who presents to the ED with L- arm weakness, L- sided chest pressure, L- sided abdominal pain x 3 days. Patient reports being seen and evaluated at [facility] for CP and d/cd to home. Patient reports the CP is intermittent non radiating sharp in quality. Patient reports having increased abdominal pain after eating. Patient denies fever, chills, cough, dizziness, RUIZ, V/D, constipation, dysuria. ER course was notable for: (1) Head CT- No evidence of acute intracranial hemorrhage or acute transcortical infarction. No mass effect, midline shift or hydrocephalus (2) Chest Xray- No focal opacity to suggest Pneumonia. No evidence pulmonary vascular congestion or pleural effusion (3) Troponin- neg x1 Vital Signs Period Temp Pulse Resp BP Sys/Ruff Pulse Ox Last 24 Hr 97.3 F-98.1 F 69-76 17-18 93-135/51-79 96-99 PHYSICAL EXAM GENERAL: The patient is awake, alert, and fully oriented, in no acute distress. HEAD: Normal with no signs of trauma. EYES: PERRL, extraocular movements intact, sclera anicteric, conjunctiva clear. ENT: Ears normal, nares patent, oropharynx clear without exudates, moist mucous membrane. . NECK: Trachea midline, full range of motion, supple. LUNGS: Breath sounds equal, clear to auscultation bilaterally, no wheezes, no crackles, no accessory muscle use. HEART: Regular rate and rhythm, S1, S2 without murmur, rub or gallop. ABDOMEN: Soft, nontender, nondistended, normoactive bowel sounds, no guarding, no rebound, no hepatosplenomegaly, no masses. EXTREMITIES: 2+ pulses, warm, well-perfused, no edema. NEUROLOGICAL: Cranial nerves II through XII grossly intact. Normal speech, gait not observed. PSYCH: Normal mood, normal affect. SKIN: Warm, dry, normal turgor, no rashes or lesions noted. LABS Laboratory Results - last 24 hr 08/14/17 08/15/17 08/15/17 06:30 07:28 07:28 WBC 4.9 RBC 3.79 Hgb 10.3 L Hct 32.4 MCV 85.6 MCH 27.1 MCHC 31.7 L RDW 13.3 Plt Count 261 MPV 8.8 Neutrophils % 55.9 D Lymphocytes % 29.4 D Monocytes % 8.2 Eosinophils % 6.3 H Basophils % 0.2 Sodium 140 139 Potassium 4.2 4.2 Chloride 109 H 109 H Carbon Dioxide 25 26 Anion Gap 6 L 4 L BUN 15 16 Creatinine 0.8 0.8 Random Glucose 89 97 Calcium 9.0 9.0 Magnesium 2.0 Imaging CTH 08/12: No acute intracranial process CXR 08/12: Clear lungs MRI (08/15): no evidence of acute infarction HOSPITAL COURSE: . Left Arm Weakness - NIHSS repeated and remains 0 - CT Head- neg ICH, mass or lesion - Discussed with patient's neurology office in [place] (Dr. Remy - ) and must turn off VNS to safely have MRI. Contacted - MRI brain is [facility] # [phone], ([phone]) and they do not keep any weekend hours. Left message requesting assistance with turning off the device on Tuesday and did receive a callback - spoke with industrial relations representative Javier Virk ([phone]) and he will send someone to de-activate the device this evening or tomorrow morning. - Offered patient second CTH as an alternative and she refuses. She refused when offered this plan by neurology as well. - Neurology evaluated patient and report low suspicion for stroke. Neurology recommended discharge with outpatient followup, however patient feels unsafe leaving without having her MRI. Will attempt to do this on Tuesday, although explained to patient it still may not be possible if we cannot have anyone come from [place] to deactivate the device. - Continue neuro checks, fall precautions 2. Chest Pain - Ruled out for CA - Pain under left breast, tender to palpation/reproducible 3. R- Breast Ca - s/p Lumpectomy x2 - no RT, no chemo 4. Epilepsy - S/p vagus nerve stimulator - no current meds 5. Lupus - No current meds Date of Admission:08/12/17 Date of Discharge: 08/15/17 Minutes to complete discharge: 45 Discharge Summary Reason For Visit: CHEST PAIN/WEAKNESSLEFT UPPER EX Current Active Problems Chest pain (Acute) Epilepsy (Acute) Left arm weakness (Acute) Lupus (Acute) Condition: Stable - Instructions Diet, Activity, Other Instructions: resume regular low sodium diet continue all medications as prescribed please follow up with Dr Remy your private neurologist within 1 week Referrals: Ralph Talavera MD [Staff Physician] - Jose Christensen MD [Primary Care Provider] - Eulogio Remy [Non Staff, Medical] - 1 Week Disposition: HOME - Home Medications Comprehensive Discharge Medication List: Ambulatory Orders Acetaminophen/Caffeine/Butalb [Fioricet -] 1 tab PO Q6H PRN 07/07/17 Albuterol 0.083% Nebulizer Samantha [Ventolin 0.083% Nebulizer Soln -] 1 amp NEB ASDIR PRN 07/07/17 Beclomethasone Dipropionate [Qvar] 8.7 gm IH BID 07/07/17 Fluoxetine HCl [Prozac] 20 mg PO DAILY 07/07/17 Gabapentin 100 mg PO TID 07/07/17 Ibuprofen 600 mg PO Q6H PRN 07/07/17 Ipratropium/Albuterol Sulfate [Combivent Respimat Inhal [place]] 4 gm IH QID 07/07 Lorazepam 2 mg PO TID 07/07/17 Oxycodone HCl/Acetaminophen [Percocet 5-325 mg Tablet] 1 tab PO Q6H PRN Trazodone HCl 100 mg PO HS 07/07/17 Ondansetron [Zofran Odt -] 4 mg SL Q4H 08/12/17 - Discharge Referral Referred to [facility] No
[2017-08-15] MEDS: FLUoxetine HCL 20 MG CAPSULE (FP) PO SCH (10:17)
[2017-08-15] MEDS: ENOXAPARIN NA (PORCINE) 40 MG/0.4 ML DISP.SYRIN SQ SCH (10:20)
[2017-08-15] MEDS ORDERED: MAGNESIUM SULFATE 2 GM in SODIUM CHLORIDE 100 ML IVPB ONE (12:25)
[2017-08-15 14:32] VITALS: BP 124/77; PULSE 75; TEMP 97.9
== END 2017-08-15 18:50 | disposition home or self-care (01) ==
LOC: FER 13:44 → FM/S 19:48
PROVIDERS: ADMIT Internal Medicine; ATTEND Nurse Practitioner Family
PROC: 3E033GC Introduction of Other Therapeutic Substance into Peripheral Vein, Percutaneous Approach (ICD-10-PCS; principal; 2017-08-12)
PROC: 3E033GC Introduction of Other Therapeutic Substance into Peripheral Vein, Percutaneous Approach (ICD-10-PCS; 2017-08-12)
DX: R07.9 Chest pain, unspecified (principal); R53.1 Weakness; G40.909 Epilepsy, unspecified, not intractable, without status epilepticus; M32.9 Systemic lupus erythematosus, unspecified
CPT/HCPCS: 36415; 70450-TC; 70552-TC; 71010-TC; 80048; 82550; 83735; 84100; 84484; 85025; 93005; 96365; 96375; 99284-25; C1887; G0378